=== PATIENT | male | born 1935 | race Caucasian/White ===

== ENCOUNTER 2017-10-07 12:53 | Inpatient (IN) ==
[2017-10-07 14:16] LABS: Eosinophils # 0.1 10*3/uL (0.0-0.87); Eosinophils % 4.3 % (0.00-10.9); Hematocrit 25.3 VOL% (42.0-52.0); Hemoglobin 8.4 GM/DL (14.0-18.0); Immature Granulocytes % 1.2 %; Immature Granulocytes Absolute 0.02 #; Lymphocytes # 0.8 10*3/uL (1.4-4.0); Lymphocytes % 51.2 % (21.2-54.2); Mean Corpuscular HGB Conc 33.2 GM/DL (32-36); Mean Corpuscular Hemoglobin 33 PG (27-34); Mean Corpuscular Volume 98.8 FL (87-102); Monocytes # 0.1 10*3/uL (0.11-0.8); Monocytes % 7.9 % (1.7-12.7); NRBC # 0.04 10*3/uL; Neutrophils # 0.6 10*3/uL (1.4-7.4); Neutrophils % 35.4 % (38.7-73.9); Platelet Count 45 T/CUMM (130-400); Red Blood Count 2.56 MC/CUMM (3.8-5.5); Red Cell Distribution Width 19.9 % (9.3-17.3); White Blood Count 1.6 T/CUMM (4-12)
[2017-10-07 14:49] LABS: Troponin I Only < 0.015 NG/ML (0.00-0.045)
[2017-10-07 14:54] LABS: Albumin 3.3 G/DL (3.4-5.0); Bilirubin,Total 2.2 MG/DL (0.2-1.0); Calcium 7.6 MG/DL (8.5-10.1); Osmolality,Calculated 282.4 MOS/KG (273-304); Potassium 4.2 MMOL/L (3.5-5.1); Thyroid Stimulating Hormone 2.26 uIU/ml (0.358-3.74); Total Protein 6.7 G/DL (6.4-8.3)
[2017-10-07 15:04] LABS: Anisocytosis 1+; Band Neutrophils 2 % (0-10); Eosinophils 6 % (0-10); Lymphocytes 52 % (20-55); Nucleated Red Blood Cells 8 (0-5); Segmented Neutrophils 37 % (50-85); Tear Drop Cells Slight; Total Cells Counted 100
[2017-10-07 15:05] LABS: Microcytosis 1+; Platelet Estimate Decreased
[2017-10-07] MEDS ORDERED: ACETAMINOPHEN 325 MG TABLET PO PRN (17:00)
[2017-10-07] MEDS ORDERED: ONDANSETRON 4 MG/2 ML VIAL IV PRN (17:00)
[2017-10-07 17:31] LABS: Eosinophils % 4.3 % (0.00-10.9); Hematocrit 25.3 VOL% (42.0-52.0); Hemoglobin 8.4 GM/DL (14.0-18.0); Lymphocytes % 51.2 % (21.2-54.2); Mean Corpuscular HGB Conc 33.2 GM/DL (32-36); Mean Corpuscular Hemoglobin 33 PG (27-34); Mean Corpuscular Volume 98.8 FL (87-102); Monocytes % 7.9 % (1.7-12.7); Neutrophils % 35.4 % (38.7-73.9); Platelet Count 45 T/CUMM (130-400); Red Blood Count 2.56 MC/CUMM (3.8-5.5); Red Cell Distribution Width 19.9 % (9.3-17.3); White Blood Count 1.6 T/CUMM (4-12)
[2017-10-07 17:32] LABS: Eosinophils # 0.1 10*3/uL (0.0-0.87); Immature Granulocytes % 1.2 %; Immature Granulocytes Absolute 0.02 #; Lymphocytes # 0.8 10*3/uL (1.4-4.0); Monocytes # 0.1 10*3/uL (0.11-0.8); NRBC # 0.04 10*3/uL; Neutrophils # 0.6 10*3/uL (1.4-7.4)
[2017-10-07 17:33] LABS: Band Neutrophils 2 % (0-10); Eosinophils 6 % (0-10); Lymphocytes 52 % (20-55); Segmented Neutrophils 37 % (50-85)
[2017-10-07 17:34] LABS: Anisocytosis 1+; Microcytosis 1+; Platelet Estimate Decreased; Tear Drop Cells Slight; Total Cells Counted 100
[2017-10-07 17:55] LABS: Folate 9.1 NG/ML (5.4-24.0)
[2017-10-07] MEDS: CYANOCOBALAMIN 500 MCG TABLET PO SCH (21:59)
[2017-10-08 05:35] LABS: Eosinophils # 0.1 10*3/uL (0.0-0.87); Eosinophils % 4.5 % (0.00-10.9); Hematocrit 21.7 VOL% (42.0-52.0); Hemoglobin 7.3 GM/DL (14.0-18.0); Immature Granulocytes % 6.3 %; Immature Granulocytes Absolute 0.07 #; Lymphocytes # 0.7 10*3/uL (1.4-4.0); Lymphocytes % 58.6 % (21.2-54.2); Mean Corpuscular HGB Conc 33.6 GM/DL (32-36); Mean Corpuscular Hemoglobin 32 PG (27-34); Mean Corpuscular Volume 96.4 FL (87-102); Mean Platelet Volume 10.8 FL (9.6-12.0); Monocytes # 0.1 10*3/uL (0.11-0.8); NRBC # 0.05 10*3/uL; Neutrophils # 0.2 10*3/uL (1.4-7.4); Neutrophils % 21.6 % (38.7-73.9); Platelet Count 42 T/CUMM (130-400); Red Blood Count 2.25 MC/CUMM (3.8-5.5); White Blood Count 1.1 T/CUMM (4-12)
[2017-10-08 05:42] LABS: INR 2.4
[2017-10-08 05:44] LABS: PT Patient Result 24.6 SECS
[2017-10-08 05:59] LABS: Calcium 7.9 MG/DL (8.5-10.1); Osmolality,Calculated 285.1 MOS/KG (273-304); Potassium 4.4 MMOL/L (3.5-5.1)
[2017-10-08 06:02] LABS: Band Neutrophils 1 % (0-10); Eosinophils 3 % (0-10); Lymphocytes 58 % (20-55); Nucleated Red Blood Cells 3 (0-5); Segmented Neutrophils 33 % (50-85); Total Cells Counted 100
[2017-10-08 06:03] LABS: Platelet Estimate Decreased
[2017-10-08] MEDS: LEVOTHYROXINE 75 MCG TABLET PO SCH (06:35)
[2017-10-08] MEDS ORDERED: SODIUM CHLORIDE 0.9% 1,000 ML IV PRN (08:22)
[2017-10-08] MEDS: PANTOPRAZOLE 40 MG TABLET PO SCH (08:36)
[2017-10-08] MEDS ORDERED: FUROSEMIDE 20 MG TABLET PO SCH (17:00)
[2017-10-08] MEDS: CYANOCOBALAMIN 500 MCG TABLET PO SCH (20:46)
[2017-10-09 05:52] LABS: Eosinophils # 0.1 10*3/uL (0.0-0.87); Eosinophils % 7.7 % (0.00-10.9); Hematocrit 28.4 VOL% (42.0-52.0); Hemoglobin 9.5 GM/DL (14.0-18.0); Immature Granulocytes % 1.9 %; Immature Granulocytes Absolute 0.02 #; Lymphocytes # 0.7 10*3/uL (1.4-4.0); Lymphocytes % 66.3 % (21.2-54.2); Mean Corpuscular HGB Conc 33.5 GM/DL (32-36); Mean Corpuscular Hemoglobin 31 PG (27-34); Mean Corpuscular Volume 93.7 FL (87-102); Mean Platelet Volume 10.6 FL (9.6-12.0); Monocytes # 0.1 10*3/uL (0.11-0.8); Monocytes % 9.6 % (1.7-12.7); NRBC # 0.03 10*3/uL; Neutrophils # 0.2 10*3/uL (1.4-7.4); Neutrophils % 14.5 % (38.7-73.9); Red Blood Count 3.03 MC/CUMM (3.8-5.5); Red Cell Distribution Width 19.9 % (9.3-17.3)
[2017-10-09 05:57] LABS: Platelet Count 34 T/CUMM (130-400)
[2017-10-09 06:14] LABS: Albumin 3.2 G/DL (3.4-5.0); Calcium 7.6 MG/DL (8.5-10.1); Osmolality,Calculated 285.1 MOS/KG (273-304); Potassium 4.1 MMOL/L (3.5-5.1); Total Protein 6.4 G/DL (6.4-8.3)
[2017-10-09 06:22] LABS: Anisocytosis 1+; Band Neutrophils 15 % (0-10); Eosinophils 10 % (0-10); Lymphocytes 55 % (20-55); Platelet Estimate Decreased; Poikilocytosis Slight; Segmented Neutrophils 10 % (50-85); Total Cells Counted 100
[2017-10-09 06:23] LABS: Polychromasia Slight
[2017-10-09] MEDS: PANTOPRAZOLE 40 MG TABLET PO SCH (09:12)
[2017-10-09] MEDS: LEVOTHYROXINE 75 MCG TABLET PO SCH (09:23)
[2017-10-09 11:53] VITALS: BP 122/60
[2017-10-09] MEDS ORDERED: ASPIRIN EC 81 MG TABLET PO SCH (12:30)
== END 2017-10-09 14:31 | disposition home health service (06) | DRG 809 ==
LOC: N.ED 12:53 → N.EDINP 17:01 → N.TELEN 19:53
PROVIDERS: ADMIT Hospitalist; ATTEND Hospitalist